=== PATIENT | female | born 1990 | race Caucasian/White ===

== ENCOUNTER 2020-12-28 15:27 | Inpatient (IN) ==
[2020-12-28 16:21] LABS: ABS Lymphocytes 0.9 10^3/ul (1.0-4.8); ABS Monocytes 0.4 10^3/ul (0-0.8); ABS Neutrophils 3.3 10^3/ul (1.5-7.7); Eosinophil % 0.4 %; Hematocrit 41 % (35-47); Hemoglobin 14.1 g/dL (12.0-16.0); Lymphocyte % 19.2 %; Mean Corpuscular HGB Conc 34 g/dL (31-36); Mean Corpuscular Hemoglobin 32 pg (27-31); Mean Corpuscular Volume 94 fL (80-97); Mean Platelet Volume 6.8 fL (7.4-10.4); Nucleated Red Blood Cells % 0.2; Platelet Count 331 10^3/uL (150-450); Red Blood Count 4.38 10^6 /uL (3.70-4.87); Red Cell Distribution Width 13 % (10-15); White Blood Count 4.6 10^3/uL (3.5-10.8)
[2020-12-28 16:39] LABS: ALT 11 U/L (7-52); AST 19 U/L (13-39); Albumin 4.2 g/dL (3.2-5.2); Albumin/Globulin Ratio 1.4 (1-3); Alkaline Phosphatase 112 U/L (35-149); Anion Gap 10 mmol/L (2-11); Blood Urea Nitrogen 10 mg/dL (6-24); CO2 Carbon Dioxide 22 mmol/L (22-32); Chloride 104 mmol/L (101-111); EGFR African American 131.3 (>60); EGFR Non-African American 108.5 (>60); Globulin 3.1 g/dL (2-4); Glucose 103 mg/dL (70-100); Potassium 3.9 mmol/L (3.5-5.0); Sodium 136 mmol/L (135-145); Total Protein 7.3 g/dL (6.4-8.9)
[2020-12-28 16:43] LABS: Acetaminophen < 15 mcg/mL; Alcohol, S < 10 mg/dL (<10); Salicylate < 2.50 mg/dL (<30)
[2020-12-28 16:48] LABS: HCG Pregnancy < 0.60 mIU/mL
[2020-12-28 16:58] LABS: TSH Ultra Thyroid Stim Horm 2.18 mcIU/mL (0.34-5.60)
[2020-12-28 17:17] LABS: Urine Benzodiazepine Screen None Detected (None Detect); Urine Cannabinoids Screen None Detected (None Detect); Urine Opiates Screen None Detected (None Detect)
[2020-12-28 17:21] LABS: Urine Appearance Cloudy; Urine Bacteria 3+ (Absent); Urine Bilirubin Negative (Negative); Urine Blood 2+ (Negative); Urine Color Yellow; Urine Glucose Negative (Negative); Urine Ketones Negative (Negative); Urine Nitrite Positive (Negative); Urine Protein Negative (Negative); Urine Red Blood Cell 1+(3-5/hpf) (Absent); Urine Specific Gravity 1.005 (1.002-1.030); Urine Squamous Epithelial Cell Present (Absent); Urine Urobilinogen Negative (Negative); Urine White Blood Cell Trace(0-5/hpf) (Absent)
[2020-12-29] MEDS ORDERED: Al Hydrox/Mg Hydrox/Simet LIQ 30 ML UDC PO PRN (01:05)
[2020-12-29] MEDS ORDERED: Nicotine GUM 2MG FRUIT FLAVOR PO PRN (02:00)
[2020-12-29] MEDS: LORazepam PO 0-6 for WAM protocol PO SCH ×3 (02:06→22:39)
[2020-12-29] MEDS: Vitamin THERAPEUTIC TAB PO SCH (10:52)
[2020-12-29] MEDS: Nicotine PATCH 21 MG/24 HR PATCH TRANSDERM SCH (10:52)
[2020-12-29] MEDS ORDERED: Nicotine PATCH 21 MG/24 HR PATCH ONE (18:11)
[2020-12-30 08:33] LABS: HDL Cholesterol 81.9 mg/dL
[2020-12-30] MEDS: Vitamin THERAPEUTIC TAB PO SCH (09:58)
[2020-12-30] MEDS: Nicotine PATCH 21 MG/24 HR PATCH TRANSDERM SCH (09:58)
[2020-12-30] MEDS: LORazepam PO 0-6 for WAM protocol PO SCH (13:47)
[2020-12-31] MEDS: Nicotine PATCH 21 MG/24 HR PATCH TRANSDERM SCH (08:12)
[2020-12-31] MEDS: Vitamin THERAPEUTIC TAB PO SCH (08:13)
[2021-01-01] MEDS: Vitamin THERAPEUTIC TAB PO SCH (08:19)
[2021-01-01] MEDS: Nicotine PATCH 21 MG/24 HR PATCH TRANSDERM SCH (08:20)
[2021-01-01 10:57] VITALS: BP 119/70
[2021-01-01] MEDS ORDERED: Lithium Carbonate ER 450mg TAB PO SCH (21:00)
== END 2021-01-01 13:30 | disposition home or self-care (01) ==
LOC: ED 15:27 → BSU 12-29 00:44
PROVIDERS: ADMIT Psychiatry & Neurology Psychiatry; ATTEND Psychiatry & Neurology Psychiatry